=== PATIENT | male | born 1960 | race Caucasian/White ===

== ENCOUNTER → 2024-08-29 15:37 | Outpatient (CLI) | payer OTHER, SELFPAY ==
--- NOTE | 2024-08-29 15:44 | DI.ECHO.S_ITS ---
[facility] : : [address] : : [place] : : [id number] : : Phone: [phone] Echocardiogram Report + + :Name: RAQUEL BOWLES Study Date: 08/29/2024 Height: 69 in : :[facility] ReadingLocation: Weight: 187 lb : : Gender: Male BSA: 2.0 m2 : :: 1960 Age: 63 yrs BP: 196/105 mmHg: :Reason For Study: ABNORMAL EKG : :Ordering Physician: DAQUAN BRADEN Performed By: Rafal Maldonado : :Referring: DAQUAN BRADEN : + + Interpretation Summary 1. The left ventricular contractility is normal. Estimated ejection fraction is greater than 55 % with no segmental wall motion abnormalities. No LVH. No diastolic dysfunction. 2. The right ventricular contractility is normal. 3. All cardiac chambers are of normal size. 4. No significant valvular abnormalities noted. 5. No obvious intracardiac shunts. 6. No obvious intracardiac masses nor thrombi. 7. No hemodynamically significant pericardial effusion. 8. Low right-sided filling pressures. Conclusion: Normal biventricular systolic function with no significant valvular abnormalities. Procedure: A two-dimensional transthoracic echocardiogram with color flow and Doppler was performed. The study quality was technically good. There is no prior echocardiogram noted for this patient. The patient was in normal sinus rhythm during the exam. Left Ventricle: The left ventricle is normal in size. There is normal left ventricular wall thickness. There is no ventricular septal defect visualized. The ejection fraction is estimated to be 55-60%. There are no focal wall motion abnormalities. Right Ventricle: The right ventricle is normal in size and function. Atria: The left atrial size is normal. Right atrial size is normal. There is no Doppler evidence for an atrial septal defect. Mitral Valve: The mitral valve leaflets appear normal. There is no evidence of stenosis, fluttering, or prolapse. There is trace mitral regurgitation. Aortic Valve: The aortic valve is trileaflet. The aortic valve opens well. No aortic regurgitation is present. Tricuspid Valve: The tricuspid valve leaflets are thin and pliable. No tricuspid regurgitation. Pulmonic Valve: The pulmonic valve leaflets are thin and pliable; valve motion is normal. There is no pulmonic valvular regurgitation. Great Vessels: The aortic root is normal size. The dimensions of the ascending aorta are normal. The pulmonary artery is normal size. The IVC is of normal diameter and collapses greater than 50% with a sniff. This suggests a low right atrial pressure of 3 mm Hg. Pericardium/ Pleura There is no pericardial effusion. There is no pleural effusion. MMode/2D Measurements & Calculations LVIDd: 5.4 cm LVOT diam: 2.1 cm LVIDs: 3.6 cm Ao root diam: 3.0 cm FS: 34.2 % asc Aorta Diam: 3.2 cm EPSS: 0.81 cm Ao Arch Diam (Prox Trans): 1.6 cm IVSd: 0.93 cm LVPWd: 0.92 cm LV nielsen. diameter/BSA (cm/m^2): 2.7 LV sys. diameter/BSA (cm/m^2): 1.8 LA A2 area: 18.7 cm2 RA long axis: 5.4 cm LA A4 area: 21.0 cm2 RA area: 17.8 cm2 LA length (vol): 5.8 cm RA vol: 49.3 ml LA vol: 57.6 ml RA : 24.6 ml/m2 LA vol index: 28.7 ml/m2 IVC diam: 1.3 cm RVD1 (basal): 3.9 cm RVD2 (mid): 3.6 cm TAPSE: 2.6 cm Doppler Measurements & Calculations Ao V2 max: 140.3 cm/sec LVOT Max Phuc: 93.5 cm/sec Ao V2 mean: 100.9 cm/sec LV V1 max P.5 mmHg Ao max P.9 mmHg LV V1 VTI: 20.3 cm Ao mean P.4 mmHg ANN-MARIE(I,D): 2.6 cm2 Ao V2 VTI: 27.3 cm ANN-MARIE(V,D): 2.4 cm2 sev ratio: 0.74 ANN-MARIE indexed to BSA (cm^2/m^2): 1.3 MV E max phuc: 73.8 cm/sec PA V2 max: 145.0 cm/sec MV A max phuc: 99.1 cm/sec PA V2 mean: 100.9 cm/sec MV E/A: 0.74 PA mean P.6 mmHg Med Peak E' Phuc: 7.5 cm/sec PA pr(Accel): 58.4 mmHg E/E' med: 9.8 Lat Peak E' Phuc: 8.3 cm/sec E/E' lat: 8.9 E/e' average: 9.4 MV dec time: 0.20 sec SV(LVOT): 72.0 ml Reading Physician:DELORIS
== END ==
PROVIDERS: Referring Provider Internal Medicine; Visit Provider Internal Medicine
DX: R94.31 Abnormal electrocardiogram [ECG] [EKG] (principal)
CPT/HCPCS: 93306